=== PATIENT | male | born 1985 | race Caucasian/White ===

== ENCOUNTER 2021-04-13 16:44 | Emergency (ER) | payer BC, SELFPAY ==
[2021-04-13 16:50] VITALS: BP 137/81; PULSE 81; RESP 16; TEMP 37.2; O2SAT 99
--- NOTE | 2021-04-13 16:59 | ED.DENTAL ---
HPI - Dental/Oral General Chief complaint: Dental/Oral Stated complaint: Abcess Tooth Time Seen by Provider: 04/13/21 16:59 Source: patient and RN notes reviewed History of Present Illness HPI Narrative: Patient is a 35-year-old male who presents the urgent care with complaints of lower left dental pain. Patient states that he fractured his tooth off a while back and he went to the dentist today for an emergency extraction . Patient states that they told him they would send off the x-ray and would not do the extraction today. Patient states that they were going to treat him with an antibiotic however he was so pissed off that they did not pull it that he left the office . Patient denies of any recent fevers, nausea, vomiting. Patient has been taking aspirin, drinking cold water and using Orajel without much relief. Patient is requesting an antibiotic and 800 mg ibuprofen. No other acute complaints. No acute distress noted. Patient read the plan of care. Some parts of this dictation were generated by voice recognition software and may contain typographical and/or grammatical inaccuracies. Related Data Home Medications Medication Instructions Recorded Confirmed lisinopril 40 mg PO DAILY 04/13/21 04/13/21 Allergies Allergy/AdvReac Type Severity Reaction Status Date / Time Penicillins Allergy Anaphylaxis Verified 04/13/21 17:01 Sulfa (Sulfonamide Allergy Anaphylaxis Verified 04/13/21 17:01 Antibiotics) Review of Systems Review of Systems: CONSTITUTIONAL: Denies fever, chills, or sweats. EYES: Denies visual changes, redness, or discharge. ENT: Denies rhinorrhea, congestion, sore throat, or otalgia. Reports of lower left dental pain CARDIOVASCULAR: Denies chest pain, palpitations, or edema. RESPIRATORY: Denies cough or dyspnea. GASTROINTESTINAL: Denies abdominal pain, nausea, vomiting, or diarrhea. GENITOURINARY: Denies dysuria or hematuria. SKIN: Denies rash or itching. MUSCULOSKELETAL: Denies back pain, joint pain, or myalgia. NEUROLOGIC: Denies headache, numbness, or weakness. All other systems reviewed are negative, except as documented in HPI. PMFSH Comments At the time of my signature, I reviewed and agree with the nursing past medical, surgical, social, and family history. There is no relevant family history pertinent to the patient complaint. Exam Narrative: GENERAL: This is a well-nourished, well-developed patient, in no apparent distress. HEAD: normocephalic, atraumatic. EYES: PERRL. Sclera clear/white. Vision is grossly intact. EARS: External ears normal NOSE: External nose normal with no obvious nasal discharge, nares without redness, no rhinorrhea. THROAT: Mucous membranes moist DENTAL: No notable abscess. Mild erythema surrounding an avulsed left lower molar with carious lesion. Notable dentition missing. NECK: Neck supple CARDIOVASCULAR: Regular rate and rhythm without murmurs, gallops, or rubs. RESPIRATORY: Clear to auscultation. Breath sounds equal bilaterally. No wheezes, rales, or rhonchi. SKIN: warm, intact with no suspicious lesions or rash, good texture and turgor. NEURO: awake, alert, and oriented to person, place and time. There were no obvious focal neurologic abnormalities. EXTREMITIES: No clubbing, cyanosis, or edema. Course Course Level of Care: Express Care Visit Vital Signs Vital signs: Vital Signs Temperature 98.9 F 04/13/21 16:50 Pulse Rate 81 04/13/21 16:50 Respiratory Rate 16 04/13/21 16:50 Blood Pressure 137/81 04/13/21 16:50 Pulse Oximetry 99 04/13/21 16:50 Temperature 98.9 F 04/13/21 17:03 Pulse Rate 81 04/13/21 17:03 Respiratory Rate 16 04/13/21 17:03 Blood Pressure 137/81 04/13/21 17:03 Pulse Oximetry 99 04/13/21 17:03 Reviewed MDM - Dental/Oral MDM Narrative Medical decision making narrative: Educated the patient on dental pain. It whenever you have a large carious lesion or a fractured tooth with nerve exposure?no amount of pain m
[2021-04-13 17:03] VITALS: BP 137/81; PULSE 81; RESP 16; TEMP 37.2; O2SAT 99
== END 2021-04-13 17:13 | disposition home or self-care (01) ==
PROVIDERS: Emergency Provider Nurse Practitioner Family
DX: K02.9 Dental caries, unspecified (principal); S02.5XXA Fracture of tooth (traumatic), initial encounter for closed fracture; X58.XXXA Exposure to other specified factors, initial encounter; R01.1 Cardiac murmur, unspecified; I10 Essential (primary) hypertension
CPT/HCPCS: 99213; G0463